=== PATIENT | male | born 1940 | race Caucasian/White ===

== ENCOUNTER 2020-09-27 13:35 | Inpatient (IN) | payer MEDICARE, BC ==
[~2020-09-27] VITALS: Ht 180.3 cm; Wt 71.6 kg
[2020-09-27] MEDS ORDERED: LISINOPRIL5 MG PO (13:43)
[2020-09-27] MEDS ORDERED: MULTI-DAY VITAM1 TAB PO (13:44)
[2020-09-27 15:33] LABS: BASOPHILS 0 % (0-2); EOSINOPHILS 0.1 % (0-7); HEMOGLOBIN 15.8 g/dL (13.5-17.5); IMMATURE GRANULOCYTES 0.3 % (0-5); LYMPHOCYTE ABS# 0.84 10x3/uL (1.32-3.57); LYMPHOCYTES 5.9 % (15-50); MCH 32.7 pg (26.0-34.0); MCHC 32.9 g/dL (31.0-37.0); MCV 99.4 fL (80.0-100.0); MEAN PLATELET VOLUME 9.7 fL (7.4-10.4); MONOCYTES 8.6 % (2-11); NEUTROPHIL ABS# 12.13 10x3/uL (1.78-5.38); NEUTROPHILS 85.1 % (40-80); PLATELET COUNT 194 10x3/uL (130-400); RBC 4.83 10x6/uL (4.20-6.10); RDW 12.5 % (11.5-14.5); WBC 14.3 10x3/uL (4.8-10.8)
[2020-09-27 15:40] LABS: CALC OSMOLALITY 276 mosm/kg (275-300); CARBON DIOXIDE 27.9 mmol/L (21.0-32.0); CHLORIDE - SERUM 102 mmol/L (98-107); GLUCOSE 104 mg/dL (74-106); SODIUM 137 mmol/L (136-145); UREA NITROGEN 22 mg/dL (7-18); eGFR NON AFRICAN AMERICAN 76 mL/min (90-120)
[2020-09-27 15:55] LABS: ALBUMIN 3.7 g/dL (3.4-5.0); ALKALINE PHOSPHATASE 72 U/L (30-120); ALT (SGPT) 31 U/L (10-68); BILIRUBIN - TOTAL 0.52 mg/dL (0.2-1.3); CKMB 1.9 U/L (0.0-3.6); CREATINE KINASE 87 UL (21-232); PRO BNP 201 pg/mL (0-450); PROTEIN - SERUM 7.7 g/dL (6.4-8.2)
[2020-09-27 15:59] LABS: TROPONIN-I < 0.017 ng/mL (0.000-0.060)
[2020-09-27 16:13] LABS: APTT 31.7 SECONDS (22.8-39.4); INR 1.2 (0.85-1.17); PROTIME 14.1 SECONDS (11.6-15.0)
[2020-09-27 20:04] VITALS: BMI 20.2
--- NOTE | 2020-09-27 20:15 | NUR ---
15minute check after rn initiated blood infusion. vs remain in the same range, no s/sx of distress. pt denies feeling any different. at bs, ctm.
[2020-09-28 03:42] VITALS: BP 109/70
[2020-09-28 06:06] LABS: BASOPHILS 0.1 % (0-2); EOSINOPHILS 0.1 % (0-7); HEMATOCRIT 45.9 % (42.0-54.0); HEMOGLOBIN 14.6 g/dL (13.5-17.5); IMMATURE GRANULOCYTES 0.3 % (0-5); LYMPHOCYTE ABS# 1.56 10x3/uL (1.32-3.57); LYMPHOCYTES 15.1 % (15-50); MCH 31.9 pg (26.0-34.0); MCHC 31.8 g/dL (31.0-37.0); MCV 100.4 fL (80.0-100.0); NEUTROPHIL ABS# 7.47 10x3/uL (1.78-5.38); NEUTROPHILS 72.4 % (40-80); PLATELET COUNT 217 10x3/uL (130-400); RBC 4.57 10x6/uL (4.20-6.10); RDW 12.9 % (11.5-14.5)
[2020-09-28 06:22] LABS: WBC 10.3 10x3/uL (4.8-10.8)
[2020-09-28 06:35] LABS: ALBUMIN 3.2 g/dL (3.4-5.0); ALKALINE PHOSPHATASE 64 U/L (30-120); ALT (SGPT) 28 U/L (10-68); BILIRUBIN - TOTAL 0.73 mg/dL (0.2-1.3); CALC OSMOLALITY 278 mosm/kg (275-300); CALCIUM 8.5 mg/dL (8.5-10.1); CARBON DIOXIDE 30.3 mmol/L (21.0-32.0); CHLORIDE - SERUM 102 mmol/L (98-107); GLUCOSE 114 mg/dL (74-106); MAGNESIUM - SERUM 2.3 mg/dL (1.8-2.4); POTASSIUM - SERUM 4.3 mmol/L (3.5-5.1); SODIUM 137 mmol/L (136-145); UREA NITROGEN 24 mg/dL (7-18); eGFR NON AFRICAN AMERICAN 76 mL/min (90-120)
--- NOTE | 2020-09-28 07:51 | NUR ---
PT REQUESTED PAIN MEDICATION, STATED PAIN IS AT A 6 IN CHEST WORSENED WHEN COUGHING, ADMINISTERED PRN PAIN MEDICATION, CONTINUE WITH PLAN OF CARE
[2020-09-28 08:44] VITALS: BP 137/84
--- NOTE | 2020-09-28 10:49 | NUR ---
PATIENT SITTING UP IN BED RESTING, EVEN RISE AND FALL OF CHEST, NO SIGNS OF DISTRESS, CL IN REACH. CONTINUE WITH PLAN OF CARE
[2020-09-28 13:58] VITALS: Ht 180.3 cm; Wt 71.6 kg
[2020-09-28 14:00] VITALS: BP 148/71
[2020-09-28 14:10] LABS: BILIRUBIN NEGATIVE (NEGATIVE); KETONE NEGATIVE (NEGATIVE); NITRITE NEGATIVE (NEGATIVE); UROBILINOGEN NORMAL mg/dL (< 2)
[2020-09-28 14:16] LABS: SQUAMOUS EPITHELIAL 0-5 HPF (0-4)
[2020-09-28 14:17] LABS: BACTERIA FEW HPF (NONE SEEN)
--- NOTE | 2020-09-28 14:46 | NUR ---
IN BED. DENIES NEEDS AT THIS TIME. BED LOW POSITION, CALL LIGHT IN REACH. [facility] ONTINUE TO MONITOR.
[2020-09-28 18:13] VITALS: BP 134/84
[2020-09-28 20:00] VITALS: BP 112/72
--- NOTE | 2020-09-28 23:47 | NUR ---
I have reviewed this patient and I concur with the Shift Assessment completed by the Licensed Practical Nurse today this shift.
--- NOTE | 2020-09-29 03:30 | NUR ---
PT OOB, IN YAO. REMOVED TELEMETRY, ATTEMPTING TO PULL ON CHEST TUBE. PT ORIENTED TO SELF, BUT REPORTS CONFUSION REGARDING TIME, PLACE, AND SITUATION. GUIDED BACK TO ROOM, REORIENTED. TELEMETRY REAPPLIED, BED ALARM TURNED ON. PT DENIES PAIN/SOB/DISTRESS, STATES HE JUST WOKE UP IN A PLACE THAT DIDN'T LOOK LIKE THE PLACE HE REMEMERED GOING TO SLEEP IN. MONITOR CLOSELY.
[2020-09-29 04:00] VITALS: BP 121/75
[2020-09-29 06:02] LABS: BASOPHILS 0.1 % (0-2); EOSINOPHILS 0.6 % (0-7); HEMATOCRIT 44.2 % (42.0-54.0); HEMOGLOBIN 14.2 g/dL (13.5-17.5); IMMATURE GRANULOCYTES 0.3 % (0-5); LYMPHOCYTE ABS# 1.49 10x3/uL (1.32-3.57); LYMPHOCYTES 13.8 % (15-50); MCH 32.3 pg (26.0-34.0); MCHC 32.1 g/dL (31.0-37.0); MCV 100.7 fL (80.0-100.0); MONOCYTES 11.3 % (2-11); NEUTROPHIL ABS# 8.01 10x3/uL (1.78-5.38); NEUTROPHILS 73.9 % (40-80); PLATELET COUNT 175 10x3/uL (130-400); RBC 4.39 10x6/uL (4.20-6.10); RDW 12.8 % (11.5-14.5); WBC 10.8 10x3/uL (4.8-10.8)
[2020-09-29 06:26] LABS: ALBUMIN 3.1 g/dL (3.4-5.0); ALKALINE PHOSPHATASE 57 U/L (30-120); ALT (SGPT) 24 U/L (10-68); CALC OSMOLALITY 271 mosm/kg (275-300); CALCIUM 8.2 mg/dL (8.5-10.1); CHLORIDE - SERUM 100 mmol/L (98-107); CREATININE - SERUM 0.8 mg/dL (0.6-1.3); GLUCOSE 98 mg/dL (74-106); MAGNESIUM - SERUM 2.3 mg/dL (1.8-2.4); POTASSIUM - SERUM 4.1 mmol/L (3.5-5.1); PROTEIN - SERUM 6.5 g/dL (6.4-8.2); SODIUM 135 mmol/L (136-145); UREA NITROGEN 19 mg/dL (7-18); eGFR NON AFRICAN AMERICAN > 90 mL/min (90-120)
--- NOTE | 2020-09-29 07:26 | NUR ---
PT IS RESTING IN BED WITH EYES OPEN. RESPIRATIONS ARE EVEN AND UNLABORED. PT IS AAO X 4 AND ANSWERS ALL QUESTIONS APPROPRIATLEY. CHEST TUBE TO LEFT CHEST NOTED. SCANT AMOUNT OF DRAINAGE NOTED. DRESSING TO LEFT CHEST TUBE IS CDI. GEOTECHNICAL FIELD TECHNICIAN IS ON AND RUNNING 99 SR PER BREEDER HEN SERVICE TECHNICIAN. SCDS REFUSED. INCENTIVE SPIROMETER AT BEDSIDE AND ENCOURAGED. PT VERBALIZES UNDERSTANDING AND DENIES FURTHER QUESTIONS. O2 VIA NC @ 2L. PT DENIES PRESENCE OF SOB/DYSPNEA AT THIS TIME. PT REPORTS PAIN 4/10 AND DENIES NEEDS FOR MEDICATION AT THIS TIME. PT DENIES PRESENCE OF N/VAT THIS TIME. BED IS IN THE LOWEST POSITION. CALL LIGHT AND BEDSIDE TABLEA RE WITHIN REACH. SIDE RAILS X 2. PT DENIES FURTHERN EEDS. WILL CONT TO ABBIE.
--- NOTE | 2020-09-29 08:06 | NUR ---
PT REQUESTS DIFFERENT ANALGESIC MEDICATION. PATRICIA FUENTES APRN NOTIFIED.
[2020-09-29 08:11] VITALS: BP 137/80
--- NOTE | 2020-09-29 10:52 | NUR ---
I have reviewed this patient and I concur with the Shift Assessment completed by the Licensed Practical Nurse today this shift.
[2020-09-29 12:56] VITALS: BP 133/77
--- NOTE | 2020-09-29 14:53 | NUR ---
PT O2 LEVEL WITHOUT OXYGEN AT 89%. PT ENCOURAGED TO TCDB AND USE INCENTIVE SPIROMETER. POOR ATTEMPT. O2 PLACED AT 2L VIA NC O2 @ 92% ON 2L. FALL PRECAUTIONS IN PLACE. BED IS IN THE LOWEST POSITION. CALL LIGHT AND BEDSIDE TABLE ARE WITHIN REACH. SIDE RAILS X 2. PT DENIES FURTHER NEEDS. WILL CONT TO MONITOR.
[2020-09-29 15:44] VITALS: BP 144/76
--- NOTE | 2020-09-29 16:33 | NUR ---
O2 @ 1L NC SAT @ 99%. O2 REMOVED TO WEAN FROM O2. PT SITTING UP TO SIDE OF BED. BED IS IN THE LOWEST POSITION. CALL LIGHT AND BEDSIDE TABLE ARE WITHIN REACH. SIDE RAILS X 2. PT DENIES FURTHER NEEDS. WILL CONT TO MONITOR.
[2020-09-29 20:00] VITALS: BP 111/74
--- NOTE | 2020-09-29 20:00 | NUR ---
PT LYING IN BED GOING TO SLEEP AT THIS TIME. STATES HE CONTINUES TO HAVE HICCUPS THAT HE DID NOT HAVE BEFORE THIS ADMISSION. DENIES NEEDS OR PAIN. O2 1L/NC TO KEEP SATS >92%. DENIES NEEDS AT THIS TIME. CL IN REACH
[2020-09-30 00:48] VITALS: BP 108/69
[2020-09-30 04:00] VITALS: BP 155/78
--- NOTE | 2020-09-30 04:00 | NUR ---
PT LYING IN BED RESTING WITHOUT DISTRESS, AOX4. O2 0.5L/NC. DENIES NEEDS AT THIS TIME. CL IN REACH
[2020-09-30 06:50] LABS: BASOPHILS 0.1 % (0-2); EOSINOPHILS 0.4 % (0-7); HEMATOCRIT 45.4 % (42.0-54.0); HEMOGLOBIN 14.6 g/dL (13.5-17.5); IMMATURE GRANULOCYTES 0.2 % (0-5); LYMPHOCYTE ABS# 1.09 10x3/uL (1.32-3.57); LYMPHOCYTES 11.3 % (15-50); MCH 32.2 pg (26.0-34.0); MCHC 32.2 g/dL (31.0-37.0); MCV 100.2 fL (80.0-100.0); MEAN PLATELET VOLUME 10.4 fL (7.4-10.4); MONOCYTES 10.3 % (2-11); NEUTROPHIL ABS# 7.52 10x3/uL (1.78-5.38); NEUTROPHILS 77.7 % (40-80); RBC 4.53 10x6/uL (4.20-6.10); RDW 12.9 % (11.5-14.5); WBC 9.7 10x3/uL (4.8-10.8)
[2020-09-30 06:52] LABS: PLATELET COUNT 212 10x3/uL (130-400)
[2020-09-30 07:06] LABS: ALBUMIN 3.1 g/dL (3.4-5.0); ALKALINE PHOSPHATASE 59 U/L (30-120); ALT (SGPT) 25 U/L (10-68); BILIRUBIN - TOTAL 0.65 mg/dL (0.2-1.3); CALC OSMOLALITY 268 mosm/kg (275-300); CALCIUM 8.5 mg/dL (8.5-10.1); CARBON DIOXIDE 26.9 mmol/L (21.0-32.0); CHLORIDE - SERUM 98 mmol/L (98-107); CREATININE - SERUM 0.8 mg/dL (0.6-1.3); GLUCOSE 97 mg/dL (74-106); MAGNESIUM - SERUM 2.2 mg/dL (1.8-2.4); POTASSIUM - SERUM 3.9 mmol/L (3.5-5.1); PROTEIN - SERUM 7.1 g/dL (6.4-8.2); SODIUM 134 mmol/L (136-145); UREA NITROGEN 16 mg/dL (7-18); eGFR NON AFRICAN AMERICAN > 90 mL/min (90-120)
--- NOTE | 2020-09-30 07:24 | NUR ---
ALERT AND ORIENTED. ASSESSMENT COMPLETE. DENIES NEEDS. BED LOW. CALL RIZZO AND PERSONAL ITEMS IN REACH. WILL CONTINUE TO MONITOR.
[2020-09-30 08:34] VITALS: BP 148/79
[2020-09-30] MEDS ORDERED: ALBUTEROL SULF8.5 GM INH (10:34)
--- NOTE | 2020-09-30 11:06 | NUR ---
WAITING CASE MANAGEMENT TO SET UP HOME O2 FOR DISCHARGE HOME.
[2020-09-30] MEDS ORDERED: PULMICORT0.5 MG/21 UPD (11:14)
--- NOTE | 2020-09-30 12:18 | MORECARE ---
CASE MANAGEMENT DISCHARGE SUMMARY PATIENT: WALLY KIM UNIT: [id number] ADM DATE: 09/27/20 AGE: 79 : 40 SEX: M ROOM/BED: D[facility] AUTHOR: CHICHI SKINNER PHYSICIAN: REFERRING PHYSICIAN: KRIS FISHER MD DATE OF SERVICE: 09/30/20 Case Management Discharge Planning Summary DCP REVIEW SUMMARY ANTICIPATED D/C DATE: EXPECTED LOS : CASE STATUS: DCP Initiated INITIAL REVIEW: 09/27/2020 INITIAL REVIEWER: Sofia Edwards FINAL DISCHARGE DISPOSITION: : FINAL REVIEWER: FINAL REVIEW DATE: LACE: UPDATED BY: [id number]: Sofia Edwards on 09/28/20 9:34 CT QUESTION: ANSWER Length of Stay (Prior Admit): None Acute Admission: Inpatient Comorbidity: No Prior History Emergency Room visits during previous 6 months: 0 Visits DCP Focus Questions & Answers DCP Screen QUESTION: ANSWER High Risk Factors: : None DCP Evaluation QUESTION: ANSWER Patient's current cognitive status: : *Oriented to person, place, situation, time and present Patient's ability to cope with chronic illness : d. No chronic illness Physical Status: : Independent with ADL's Functional screen comments: : WILL REQUIRE OXYGEN PER WALK TEST Living Arrangements: : Home with Spouse/Significant Other Baseline cognitive status: : *Oriented to person, place, situation, time and present Medication Management: : Patient states can read and understand medication labels Pharmacy name(s): : [facility] Does Patient have transportation to get home and to follow-up medical appointments when discharged from the hospital? : Yes Would patient like to participate in any Care Coordination programs (if applicable): : Not applicable Equipment in use: : None Mental health screen: : No mental health history DCP Re-evaluation QUESTION: ANSWER Would patient like to participate in any Care Coordination programs (if applicable): : Not applicable PROVIDER NETWORKING REVIEW DATE: 09/30/2020 SERVICE TYPE: Durable Medical Equipment REVIEWER: Sofia Edwards PROVIDER: FINAL PROVIDER? : FINAL DATE/TIME: CT PATIENT: WALLY KIM ENCOUNTER: [id number] MEDICAL RECORD#: [id number] ADMISSION DATE: 09/27/2020 DISCHARGE DATE: ATTENDING MD: KRIS EDWARDS : AGE: 79 MARITAL STATUS: M DC PLAN ID: [id number] FACILITY: [facility] PRINTED ON: 09/30/20 12:18 CT All edits/amendments must be made on the electronic document DICTATION DATE: 09/30/201216 TITLE SEARCHER: SPIKE 09/30/201216 RPT#: [id number] DC DATE: STATUS: ADM IN [facility] [address] [place] [address] END OF REPORT
--- NOTE | 2020-09-30 12:18 | NUR ---
DC EDUCATION PROVIDED BOTH WRITTEN AND VERBAL. VERBALIZED UNDERSTANDING. DENIES FURTHER QUESTIONS. IV REMOVED FROM LFA WITH TIP INTACT. TELEMETRY REMOVED AND RETURNED TO BRITTNI AT TELE MONITORS. WAITING O2 FOR DC. DENIES FURTHER NEEDS.
--- NOTE | 2020-09-30 12:30 | MORECARE ---
CASE MANAGEMENT DISCHARGE SUMMARY PATIENT: WALLY KIM UNIT: [id number] ADM DATE: 09/27/20 AGE: 79 : 40 SEX: M ROOM/BED: D.2223 AUTHOR: SUSANNE,DOC PHYSICIAN: REFERRING PHYSICIAN: KRIS FISHER MD DATE OF SERVICE: 09/30/20 Case Management Discharge Planning Summary COMMENTS ENTERED DATE: 09/30/20 12:16 CT COMMENT TYPE: Discharge Planning REVIEWER: Sofia Edwards CM met with patient at bedside after obtaining verbal consent. CM discussed availability / needs of home health, REHAB and medical equipment. Patient will need oxygen for home after reviewing walk test results. Patient signed choice letter for oxygen from [facility] [place], refusal signed for home health. Plans to dc to home today with his . DME will be delivered to his room. IMM signed and copy placed on chart. I gave my contact information to patient in case of any questions later. CM to follow and assist as needed. DCP REVIEW SUMMARY ANTICIPATED D/C DATE: EXPECTED LOS : CASE STATUS: DCP Initiated INITIAL REVIEW: 09/27/2020 INITIAL REVIEWER: Sofia Edwards FINAL DISCHARGE DISPOSITION: : FINAL REVIEWER: FINAL REVIEW DATE: LACE: UPDATED BY: [id number]: Sofia Edwards on 09/28/20 9:34 CT QUESTION: ANSWER Length of Stay (Prior Admit): None Acute Admission: Inpatient Comorbidity: No Prior History Emergency Room visits during previous 6 months: 0 Visits DCP Focus Questions & Answers DCP Screen QUESTION: ANSWER High Risk Factors: : None DCP Evaluation QUESTION: ANSWER Patient's current cognitive status: : *Oriented to person, place, situation, time and present Patient's ability to cope with chronic illness : d. No chronic illness Physical Status: : Independent with ADL's Functional screen comments: : WILL REQUIRE OXYGEN PER WALK TEST Living Arrangements: : Home with Spouse/Significant Other Baseline cognitive status: : *Oriented to person, place, situation, time and present Medication Management: : Patient states can read and understand medication labels Pharmacy name(s): : [facility] Does Patient have transportation to get home and to follow-up medical appointments when discharged from the hospital? : Yes Would patient like to participate in any Care Coordination programs (if applicable): : Not applicable Equipment in use: : None Mental health screen: : No mental health history DCP Re-evaluation QUESTION: ANSWER Would patient like to participate in any Care Coordination programs (if applicable): : Not applicable PROVIDER NETWORKING REVIEW DATE: 09/30/2020 SERVICE TYPE: Durable Medical Equipment REVIEWER: Sofia Edwards PROVIDER: FINAL PROVIDER? : FINAL DATE/TIME: CT PATIENT: WALLY KIM ENCOUNTER: [id number] MEDICAL RECORD#: [id number] ADMISSION DATE: 09/27/2020 DISCHARGE DATE: ATTENDING MD: KRIS EDWARDS : AGE: 79 MARITAL STATUS: M DC PLAN ID: [id number] FACILITY: [facility] PRINTED ON: 09/30/20 12:30 CT All edits/amendments must be made on the electronic document DICTATION DATE: 09/30/20 123 ORDER MANAGER: SPIKE 09/30/20 1230 RPT#: [id number] DC DATE: STATUS: ADM IN [facility] [address] [place] [address] END OF REPORT
--- NOTE | 2020-09-30 13:25 | NUR ---
O2 BROUGHT TO PATIENT BY JORGE. PATIENT DC HOME WITH FAMILY MEMBER WITH ALL BELONGINGS.
--- NOTE | 2020-10-02 17:35 | MORECARE ---
CASE MANAGEMENT DISCHARGE SUMMARY PATIENT: WALLY KIM UNIT: [id number] ADM DATE: 09/27/20 AGE: 79 : 40 SEX: M ROOM/BED: D.2223 AUTHOR: SUSANNE,DOC PHYSICIAN: REFERRING PHYSICIAN: KRIS FISHER MD DATE OF SERVICE: 10/02/20 Case Management Discharge Planning Summary COMMENTS ENTERED DATE: 09/30/20 12:16 CT COMMENT TYPE: Discharge Planning REVIEWER: Sofia Edwards CM met with patient at bedside after obtaining verbal consent. CM discussed availability / needs of home health, REHAB and medical equipment. Patient will need oxygen for home after reviewing walk test results. Patient signed choice letter for oxygen from [facility], refusal signed for home health. Plans to dc to home today with his . DME will be delivered to his room. IMM signed and copy placed on chart. I gave my contact information to patient in case of any questions later. CM to follow and assist as needed. DCP REVIEW SUMMARY ANTICIPATED D/C DATE: EXPECTED LOS : CASE STATUS: DCP Initiated INITIAL REVIEW: 09/27/2020 INITIAL REVIEWER: Sofia Edwards FINAL DISCHARGE DISPOSITION: : FINAL REVIEWER: FINAL REVIEW DATE: LACE: UPDATED BY: [id number]: Sofia Edwards on 09/28/20 9:34 CT QUESTION: ANSWER Length of Stay (Prior Admit): None Acute Admission: Inpatient Comorbidity: No Prior History Emergency Room visits during previous 6 months: 0 Visits DCP Focus Questions & Answers DCP Screen QUESTION: ANSWER High Risk Factors: : None DCP Evaluation QUESTION: ANSWER Patient's ability to cope with chronic illness : d. No chronic illness Patient's current cognitive status: : *Oriented to person, place, situation, time and present Physical Status: : Independent with ADL's Living Arrangements: : Home with Spouse/Significant Other Functional screen comments: : WILL REQUIRE OXYGEN PER WALK TEST Baseline cognitive status: : *Oriented to person, place, situation, time and present Medication Management: : Patient states can read and understand medication labels Pharmacy name(s): : [facility] Does Patient have transportation to get home and to follow-up medical appointments when discharged from the hospital? : Yes Would patient like to participate in any Care Coordination programs (if applicable): : Not applicable Equipment in use: : None Mental health screen: : No mental health history DCP Re-evaluation QUESTION: ANSWER Would patient like to participate in any Care Coordination programs (if applicable): : Not applicable PROVIDER NETWORKING REVIEW DATE: 09/30/2020 SERVICE TYPE: Durable Medical Equipment REVIEWER: Sofia Edwards PROVIDER: FINAL PROVIDER? : FINAL DATE/TIME: CT PATIENT: WALLY KIM ENCOUNTER: [id number] MEDICAL RECORD#: [id number] ADMISSION DATE: 09/27/2020 DISCHARGE DATE: 09/30/2020 ATTENDING MD: KRIS EDWARDS : AGE: 79 MARITAL STATUS: M DC PLAN ID: [id number] FACILITY: [facility] PRINTED ON: 10/02/20 17:35 CT All edits/amendments must be made on the electronic document DICTATION DATE: 10/02/201734 CARAMEL CANDY MAKER: SPIKE 10/02/201734 RPT#: [id number] DC DATE:09/30/20 STATUS: DIS IN [facility] [address] [place] [address] END OF REPORT
== END 2020-09-30 13:50 | disposition home or self-care (01) | DRG 201 ==
LOC: D.ER 13:35 → D.MS 19:14
PROVIDERS: Family Medicine; ADMIT Emergency Medicine; ATTEND Emergency Medicine
PROC: 0W9B30Z Drainage of Left Pleural Cavity with Drainage Device, Percutaneous Approach (ICD-10-PCS; principal; 2020-09-27)
DX: S27.0XXA Traumatic pneumothorax, initial encounter (principal); W19.XXXA Unspecified fall, initial encounter; I10 Essential (primary) hypertension; J44.9 Chronic obstructive pulmonary disease, unspecified; Z87.891 Personal history of nicotine dependence